=== PATIENT | male | born 1960 | race Caucasian/White ===

== ENCOUNTER 2023-12-19 14:10 | Emergency (ER) | payer MEDICARE ==
[~2023-12-19] VITALS: Ht 177.8 cm; Wt 99.8 kg
[2023-12-19] MEDS ORDERED: MORPHINE SULFATE INJ 4 MG/ML DISP.SYRIN ONE (14:59)
[2023-12-19] MEDS ORDERED: ASPIRIN 81 MG TAB.CHEW ONE ×2 (14:59→17:56)
[2023-12-19] MEDS ORDERED: ONDANSETRON HCL/PF 4 MG/2 ML VIAL ONE (14:59)
[2023-12-19 15:02] LABS: BASOPHILS # (AUTO) 0.1 K/uL (0.0-0.2); BASOPHILS % (AUTO) 0.7 % (0.0-2.0); EOSINOPHILS # (AUTO) 0.2 K/uL (0.0-0.7); EOSINOPHILS % (AUTO) 2.2 % (0.0-6.0); HEMATOCRIT 45 % (39-51); HEMOGLOBIN 14.8 g/dL (13.5-17.5); LYMPHOCYTES # (AUTO) 2.8 K/uL (0.8-4.8); LYMPHOCYTES % (AUTO) 26.8 % (20.0-44.0); MEAN CORPUSCULAR HEMOGLOBIN 27 PG (26.0-33.0); MEAN CORPUSCULAR HGB CONC 33 g/dl (31.0-36.0); MEAN CORPUSCULAR VOLUME 82 fL (80-96); MONOCYTES # (AUTO) 0.6 K/uL (0.1-1.30); MONOCYTES % (AUTO) 5.6 % (2.0-12.0); NEUTROPHILS # (AUTO) 6.7 K/uL (1.8-8.9); NEUTROPHILS % (AUTO) 64.7 % (43.0-81.0); PLATELET COUNT (AUTO) 194 K/uL (150-450); RED BLOOD CELL COUNT(AUTO) 5.42 MIL/uL (4.5-6.0); RED CELL DISTRIBUTION WIDTH 14.7 % (11.5-15.0); WHITE BLOOD COUNT (AUTO) 10.4 K/uL (4.3-11.0)
[2023-12-19] MEDS: ASPIRIN 81 MG TAB.CHEW PO ONE ×2 (15:05→17:59)
[2023-12-19] MEDS: MORPHINE SULFATE INJ 2 MG/ML DISP.SYRIN IV ONE (15:05)
[2023-12-19] MEDS: ONDANSETRON HCL/PF 4 MG/2 ML VIAL IVP ONE (15:05)
[2023-12-19 15:31] LABS: CALCIUM, SERUM 9.7 mg/dL (8.5-10.1); CARBON DIOXIDE 28 mmol/L (21-32); CHLORIDE 103 mmol/L (98-107); CREATININE 1.3 mg/dL (0.6-1.3); GLUCOSE 171 mg/dL (74-106); POTASSIUM 4.4 mmol/L (3.5-5.1); SODIUM SERUM 142 mmol/L (136-145); UREA NITROGEN, BLOOD 19 mg/dL (7-18)
[2023-12-19 15:45] LABS: NT-PRO BNP 157 pg/mL (0-125)
[2023-12-19] MEDS ORDERED: NITROGLYCERIN 0.4 MG/TAB BOTTLE ONE (15:57)
[2023-12-19] MEDS: NITROGLYCERIN 0.4 MG/TAB BOTTLE SL ONE ×2 (16:04→18:01)
[2023-12-19 16:26] VITALS: TEMP 98.2; O2SAT 65
[2023-12-19] MEDS ORDERED: METF-442 PO (17:27)
[2023-12-19] MEDS ORDERED: ASPI-1169 PO (17:27)
[2023-12-19] MEDS ORDERED: ISOT40CA PO (17:27)
[2023-12-19] MEDS ORDERED: ISOS30TA86 PO (17:27)
[2023-12-19] MEDS ORDERED: NPH,100V SQ ×2 (17:27)
[2023-12-19] MEDS ORDERED: IPRA21SP BNOSTRILS (17:27)
[2023-12-19] MEDS ORDERED: METO50TA16 PO (17:27)
[2023-12-19] MEDS ORDERED: LISI40TA13 PO (17:27)
[2023-12-19] MEDS ORDERED: GABA300C PO (17:27)
[2023-12-19] MEDS ORDERED: FENO54TA PO (17:27)
[2023-12-19] MEDS ORDERED: ATOR40TA PO (17:27)
[2023-12-19] MEDS ORDERED: EMPA25TA PO (17:27)
[2023-12-19] MEDS ORDERED: ENOXAPARIN SODIUM 100 MG/ML DISP.SYRIN SQ ONE (18:00)
[2023-12-19 18:01] VITALS: BP 161/70
== END 2023-12-19 18:14 | disposition short-term general hospital (02) ==
LOC: ER 14:10
DX: I21.4 Non-ST elevation (NSTEMI) myocardial infarction (principal); R07.9 Chest pain, unspecified; I10 Essential (primary) hypertension; E11.9 Type 2 diabetes mellitus without complications; Z79.4 Long term (current) use of insulin; Z79.84 Long term (current) use of oral hypoglycemic drugs; Z79.899 Other long term (current) drug therapy; Z86.79 Personal history of other diseases of the circulatory system
CPT/HCPCS: 99291; 96374; 96375; 93005 ×2; 71045; 85025; 80048; 36415; 84484 ×2; 83880; 82962; J2270; J2405